=== PATIENT | female | born 1985 | race Caucasian/White ===

== ENCOUNTER 2019-02-11 03:50 | Emergency (ER) | payer MEDICAID ==
[~2019-02-11] VITALS: Ht 172.7 cm; Wt 63.5 kg
--- NOTE | 2019-02-11 03:53 | NUR ---
PT RECEIVED C/O BUG BITE BIB RESCUE 909 AMBULATORY WITH STABLE GAIT ABLE TO SPEAK CLEAR AND COMPLETE SENTENCES Addendum: 02/11/19 at 0411 by MARICASTIL RAISED CIRCULAR BUMP APPROX 2X2CM MEDIAL AC, RIGHT PT COMPLIANT, ANGELA CLARK AT BEDSIDE FOR HX AND PHYSICAL
[2019-02-11] MEDS ORDERED: LIDOCAINE 1%-EPI 1:100,000 20 ML VIAL TP ONE (04:15)
[2019-02-11] MEDS ORDERED: SULFAMETH/TRIMETH 800/160 MG TABLET PO ONE (04:15)
[2019-02-11] MEDS ORDERED: SULFAMETH/TRIMETH 800/160 MG TABLET ONE (04:17)
--- NOTE | 2019-02-11 04:17 | NUR ---
PT ABLE TO TOLERATE I&D DONE BY ERMD PT NAD IODOFORM PACKING STRIP AND COVERED WITH BANDAID ASEPSIS OBSERVED SIDERAILSX2 UP, BED AT LOWEST POSITION MONITORED ACCORDINGLY
[2019-02-11] MEDS ORDERED: IBUPROFEN 600 MG TABLET ONE (04:24)
--- NOTE | 2019-02-11 04:29 | NUR ---
PT IS HOMELESS BUT SIGNED THE HOMELESS WAIVER FORM Patient discharged to home in stable conditon. Written and verbal after care instructions given. Patient verbalizes understanding of instructions. AMBULATORY WITH STABLE GAIT. ALL BELONGINGS WITH PT
[2019-02-11] MEDS ORDERED: IBUPROFEN 600 MG TABLET PO ONE (04:30)
[2019-02-11 04:31] VITALS: BP 100/77
== END 2019-02-11 04:32 | disposition home or self-care (01) ==
LOC: ER 03:53
DX: L02.413 Cutaneous abscess of right upper limb (principal); B85.2 Pediculosis, unspecified; F17.200 Nicotine dependence, unspecified, uncomplicated; F12.10 Cannabis abuse, uncomplicated; Z59.0 Homelessness; Z88.8 Allergy status to other drugs, medicaments and biological substances
CPT/HCPCS: 10060; 99284; J3490; A4663